=== PATIENT | male | born 1965 | race Caucasian/White ===

== ENCOUNTER → 2020-08-01 | Outpatient (CLI) | payer OTHER ==
[~2020-08-01] MED LIST: AMBIEN10 M1 PO; BACTRIM DS 8001 TA1 PO; CEPHALEXIN500 M1 PO; CYCLOBENZAPRINE10 MG PO; CYMBALTA30 MG PO; CYMBALTA60 MG PO; HYDROCODONE BIT1 T11 PO; INDOCIN25 MG PO; KEFLEX500 MG PO; MEDROL DOSEPAK4 MG PO; MOTRIN600 MG PO; NAPROSYN500 MG PO; OXYCODONE30 MG PO; PREDNICOT20 MG PO; PROTONIX20 MG PO; ULTRAM50 MG PO; VIBRAMYCIN100 MG PO; ZITHROMAX Z PA250 MG PO
== END | disposition home or self-care (01) ==
LOC: COVID19 14:46
PROVIDERS: ATTEND Internal Medicine
DX: Z20.828 Contact with and (suspected) exposure to other viral communicable diseases (principal)

== ENCOUNTER 2020-11-29 10:22 | Emergency (ER) | payer OTHER ==
[~2020-11-29] VITALS: Ht 177.8 cm; Wt 90.7 kg
[2020-11-29 12:20] LABS: BILIRUBIN Negative (Negative); BLOOD Negative (Negative); CLARITY Clear (Clear); COLOR Yellow (Yellow); GLUCOSE Negative (Negative); KETONE Negative (Negative); LEUKO ESTERASE Negative (Negative); NITRITE Negative (Negative); PH 5.5 (4.5-8.0); SPECIFIC GRAVITY <= 1.005 (1.001-1.030); UROBILINOGEN 0.2 E.U./dl (0.0-1.0)
[2020-11-29 12:29] LABS: RBC 0-2 rbc/hpf (0-2)
[2020-11-29] MEDS ORDERED: PREDNISONE20 M1 PO ×2 (12:32→13:31)
[2020-11-29] MEDS ORDERED: PROVENTIL HFA6.7 GM INH (12:32)
== END 2020-11-29 13:45 | disposition home or self-care (01) ==
LOC: ED 10:22
PROVIDERS: Physician Assistant
DX: L50.9 Urticaria, unspecified (principal); F17.200 Nicotine dependence, unspecified, uncomplicated; Z20.822 Contact with and (suspected) exposure to COVID-19; Z88.8 Allergy status to other drugs, medicaments and biological substances; Z79.899 Other long term (current) drug therapy

== ENCOUNTER 2020-12-02 00:08 | Emergency (ER) | payer OTHER ==
[~2020-12-02] VITALS: Wt 90.7 kg
[~2020-12-02 00:08] MED LIST changes: +PREDNISONE20 M1 PO; +PROVENTIL HFA6.7 GM INH
[2020-12-02 01:23] LABS: HEMATOCRIT 44.2 % (42.0-52.0); MEAN CELL VOLUME 90.4 fl (80.0-94.0); MEAN CORPUSCULAR HGB 30.1 pg (27.0-31.0); MEAN CORPUSCULAR HGB CONC 33.3 g/dl (33.0-37.0); PLATELET COUNT AUTOMATED 234 10*3/uL (130-400); RED BLOOD COUNT 4.89 10*6/uL (4.50-5.90); WHITE BLOOD COUNT 11.8 10*3/uL (4.8-10.8)
[2020-12-02 01:43] LABS: PLATELET SUFFICIENCY NORMAL (NORMAL); TOTAL CELLS COUNTED 100 #CELLS
[2020-12-02] MEDS ORDERED: PEPCID20 MG PO (02:34)
[2020-12-02] MEDS ORDERED: DIPHENHYDRAMINE50 M1 PO (02:34)
== END 2020-12-02 02:50 | disposition home or self-care (01) ==
LOC: ED 00:08
PROVIDERS: Emergency Medicine
DX: L50.9 Urticaria, unspecified (principal); Z88.8 Allergy status to other drugs, medicaments and biological substances; Z79.899 Other long term (current) drug therapy

== ENCOUNTER 2021-10-30 20:01 | Emergency (ER) | payer OTHER ==
[~2021-10-30] VITALS: Ht 177.8 cm; Wt 93.4 kg
[~2021-10-30 20:01] MED LIST changes: +DIPHENHYDRAMINE50 M1 PO; +PEPCID20 MG PO
[2021-10-30 21:00] LABS: BASO % 0.4 % (0.0-1.0); EOS # 0.4 10*3/uL (0.0-0.4); EOS % 3.6 % (1.0-4.0); HEMATOCRIT 42.8 % (42.0-52.0); LYMPH # 2.3 10*3/uL (1.3-4.4); LYMPH % 23.1 % (27.0-41.0); MEAN CELL VOLUME 88.1 fl (80.0-94.0); MEAN CORPUSCULAR HGB 29.6 pg (27.0-31.0); MEAN CORPUSCULAR HGB CONC 33.6 g/dl (33.0-37.0); MEAN PLATELET VOLUME 9.8 fl (9.6-12.3); MONO # 0.7 10*3/uL (0.1-1.0); MONO % 7.1 % (3.0-9.0); NEUT # 6.5 10*3/uL (2.3-7.9); NEUT % 65.6 % (47.0-73.0); PLATELET COUNT AUTOMATED 209 10*3/uL (130-400); RED BLOOD COUNT 4.86 10*6/uL (4.50-5.90); RED CELL DISTRI WIDTH 13.3 % (0-14.5)
[2021-10-30 21:31] LABS: ALKALINE PHOSPHATASE 85 U/L (45-117); BUN 23 mg/dl (7-24); CHLORIDE 112 mmol/L (98-107); CREATININE 1.13 mg/dL (0.70-1.30); POTASSIUM 3.8 mmol/L (3.5-5.1); SGOT/AST 16 IU/L (3-35); SGPT/ALT 39 U/L (12-78); SODIUM 142 mmol/L (136-145); TOTAL PROTEIN 6.8 gm/dL (6.4-8.2)
[2021-10-31] MEDS ORDERED: ASPIRIN ADULT L81 M1 PO (13:36)
[2021-10-31] MEDS ORDERED: PLAVIX75 M1 PO (13:38)
== END 2021-10-31 13:43 | disposition home or self-care (01) ==
LOC: ED 20:01
PROVIDERS: Nurse Practitioner Family
DX: G45.9 Transient cerebral ischemic attack, unspecified (principal); G43.909 Migraine, unspecified, not intractable, without status migrainosus; F17.200 Nicotine dependence, unspecified, uncomplicated; Z88.1 Allergy status to other antibiotic agents; Z79.899 Other long term (current) drug therapy

== ENCOUNTER 2022-02-13 12:21 | Emergency (ER) | payer MEDICAID ==
[~2022-02-13] VITALS: Wt 90.7 kg
[~2022-02-13 12:21] MED LIST changes: +ASPIRIN ADULT L81 M1 PO; +PLAVIX75 M1 PO
[2022-02-13] MEDS ORDERED: LISINOPRIL10 M1 PO (12:46)
[2022-02-13] MEDS ORDERED: HYDROCHLOROTH12.5 M3 PO (12:46)
[2022-02-13] MEDS ORDERED: MEDROL DOSEPAK4 MG PO (16:35)
[2022-02-13] MEDS ORDERED: ZYRTEC10 M3 PO (16:35)
== END 2022-02-13 16:50 | disposition home or self-care (01) ==
LOC: ED 12:21
DX: K12.2 Cellulitis and abscess of mouth (principal)

== ENCOUNTER → 2022-02-22 | Outpatient (CLI) | payer MEDICAID ==
[~2022-02-22] MED LIST changes: +HYDROCHLOROTH12.5 M3 PO; +LISINOPRIL10 M1 PO; +ZYRTEC10 M3 PO
[2022-02-23 04:06] LABS: RHEUMATOID FACTOR <10.0 IU/mL (<14.0)
== END | disposition home or self-care (01) ==
LOC: LAB 09:37
PROVIDERS: ATTEND Family Medicine
DX: M25.561 Pain in right knee (principal); M47.22 Other spondylosis with radiculopathy, cervical region; M13.0 Polyarthritis, unspecified

== ENCOUNTER 2022-04-26 12:04 | Emergency (ER) | payer MEDICAID ==
[~2022-04-26] VITALS: Wt 90.7 kg
[~2022-04-26 12:04] MED LIST changes: -HYDROXYZINE HCL25 MG PO; -PEPCID40 MG PO
[2022-04-26] MEDS ORDERED: MEDROL DOSEPAK4 MG PO (13:35)
[2022-04-26] MEDS ORDERED: PEPCID40 MG PO (13:35)
[2022-04-26] MEDS ORDERED: HYDROXYZINE HCL25 MG PO (13:35)
== END 2022-04-26 14:27 | disposition home or self-care (01) ==
LOC: ED 12:04
DX: R22.0 Localized swelling, mass and lump, head (principal); T41.45XA Adverse effect of unspecified anesthetic, initial encounter; Z88.1 Allergy status to other antibiotic agents; Z79.899 Other long term (current) drug therapy; Z90.89 Acquired absence of other organs; Y92.89 Other specified places as the place of occurrence of the external cause

== ENCOUNTER → 2022-04-26 | Day surgery (SDC) | payer MEDICAID ==
[~2022-04-26] VITALS: Ht 177.8 cm; Wt 90.7 kg
[~2022-04-26] MED LIST changes: +ATORVASTATIN CA40 M1 PO; +HYDROXYZINE HCL25 MG PO; -LISINOPRIL10 M1 PO; +LISINOPRIL20 MG PO; +PEPCID40 MG PO; -PROTONIX20 MG PO; +PROTONIX40 M1 PO
[2022-04-26 07:30] VITALS: BP 116/75
[2022-04-26 08:23] VITALS: BP 92/58
[2022-04-26 08:38] VITALS: BP 95/67
[2022-04-26 08:51] VITALS: BP 88/71
== END | disposition home or self-care (01) ==
LOC: SDC 04-23 11:00
PROVIDERS: ATTEND Surgery
DX: Z12.11 Encounter for screening for malignant neoplasm of colon (principal); K62.1 Rectal polyp; K57.30 Diverticulosis of large intestine without perforation or abscess without bleeding; K29.70 Gastritis, unspecified, without bleeding; K44.9 Diaphragmatic hernia without obstruction or gangrene; I10 Essential (primary) hypertension; E78.00 Pure hypercholesterolemia, unspecified; K21.9 Gastro-esophageal reflux disease without esophagitis; Z86.73 Personal history of transient ischemic attack (TIA), and cerebral infarction without residual deficits; F17.210 Nicotine dependence, cigarettes, uncomplicated; Z88.1 Allergy status to other antibiotic agents; Z98.890 Other specified postprocedural states; Z79.899 Other long term (current) drug therapy

== ENCOUNTER → 2022-07-05 | Outpatient (CLI) | payer MEDICAID ==
[~2022-07-05] MED LIST changes: +HYDROXYZINE HCL25 MG PO; +PEPCID40 MG PO
== END | disposition home or self-care (01) ==
LOC: RAD 14:52
PROVIDERS: ATTEND Family Medicine
DX: M47.812 Spondylosis without myelopathy or radiculopathy, cervical region (principal); I65.22 Occlusion and stenosis of left carotid artery

== ENCOUNTER 2022-07-09 21:06 | Emergency (ER) | payer MEDICAID ==
[~2022-07-09] VITALS: Ht 177.8 cm; Wt 90.7 kg
[2022-07-09] MEDS ORDERED: ZYRTEC ALLERGY10 MG PO (22:48)
[2022-07-09] MEDS ORDERED: MEDROL DOSEPAK4 MG PO (22:48)
== END 2022-07-09 22:54 | disposition home or self-care (01) ==
LOC: ED 21:06
DX: T78.40XA Allergy, unspecified, initial encounter (principal); Z88.1 Allergy status to other antibiotic agents; Z79.899 Other long term (current) drug therapy; Z90.89 Acquired absence of other organs; X58.XXXA Exposure to other specified factors, initial encounter

== ENCOUNTER → 2022-11-22 | Outpatient (CLI) | payer MEDICAID ==
[~2022-11-22] MED LIST changes: +ZYRTEC ALLERGY10 MG PO
== END | disposition home or self-care (01) ==
LOC: RAD 14:30
PROVIDERS: ATTEND Nurse Practitioner Family
DX: R05.9 Cough, unspecified (principal)

== ENCOUNTER → 2023-01-11 | Outpatient (CLI) | payer MEDICAID | END | disposition home or self-care (01) | LOC: RAD 09:09 | PROVIDERS: ATTEND Nurse Practitioner Family | DX: M47.814 Spondylosis without myelopathy or radiculopathy, thoracic region (principal); M41.84 Other forms of scoliosis, thoracic region; M47.817 Spondylosis without myelopathy or radiculopathy, lumbosacral region ==

== ENCOUNTER 2023-01-14 01:35 | Emergency (ER) | payer MEDICAID ==
[~2023-01-14] VITALS: Ht 182.8 cm; Wt 87.1 kg
== END 2023-01-14 04:12 ==
LOC: ED 01:35
DX: I46.9 Cardiac arrest, cause unspecified (principal); Z88.1 Allergy status to other antibiotic agents; Z88.8 Allergy status to other drugs, medicaments and biological substances; Z98.890 Other specified postprocedural states